=== PATIENT | female | born 1985 | race Caucasian/White ===

== ENCOUNTER 2024-07-08 02:24 | Emergency (ER) | payer SELFPAY ==
[2024-07-08] MEDS ORDERED: ACETAMINOPHEN 500 MG TAB ONE (03:16)
[2024-07-08] MEDS ORDERED: KETOROLAC 30 MG/ML INJ ONE (03:16)
[2024-07-08] MEDS ORDERED: methocarbamoL 500 MG TAB ONE (03:16)
--- NOTE | 2024-07-08 04:03 | ER ---
Nurse's Notes [facility] Name: Coral Howe Age: 38 yrs Sex: Female : 1985 Arrival Date: 07/08/2024 Time: 02:24 Bed 19 Private MD: Diagnosis: Sprain of ankle;Sprain of foot Presentation: 07/08 02:30 Chief complaint: Patient states: PAIN AND SWELLING ON THE LEFT FOOT AFTER FALLING AND ha1 BENDING MY FOOT. 02:30 Coronavirus screen: Vaccine status: Patient reports being unvaccinated. Ebola Screen: ha1 No symptoms or risks identified at this time. Initial Sepsis Screen: Does the patient meet any 2 criteria? No. Patient's initial sepsis screen is negative. Does the patient have a suspected source of infection? No. Patient's initial sepsis screen is negative. Risk Assessment: Do you want to hurt yourself or someone else? Patient reports no desire to harm self or others. Onset of symptoms was July 08, 2024. 02:30 Method Of Arrival: Wheelchair ha1 02:30 Acuity: JANICE 4 ha1 Historical: - Allergies: 02:59 No Known Allergies; ha1 - PMHx: 02:59 None; ha1 - Immunization history:: Adult Immunizations up to date. - Infectious Disease History:: Denies. - Social history:: Smoking status: Patient/guardian denies using tobacco, the patient reports quitting approximately 3 years ago. Screenin:30 [facility] ED Fall Risk Assessment (Adult) History of falling in the last 3 months, br2 including since admission Yes- single mechanical fall (1 pt) Confusion or Disorientation No (0 pts) Intoxicated or Sedated Yes (3 pts) Impaired Gait No (0 pts) Mobility Assist Device Used Yes (1 pt) Altered Elimination No (0 pt) Score/Fall Risk Level 3 or more points = High Risk Oriented to surroundings, Maintained a safe environment, Educated pt \T\ family on fall prevention, incl call for assistance when getting out of bed. 02:59 Abuse screen: Denies threats or abuse. Denies injuries from another. Nutritional ha1 screening: No deficits noted. Tuberculosis screening: No symptoms or risk factors identified. Assessment: 02:45 Reassessment: Patient and/or family updated on plan of care and expected duration. Pain br2 level reassessed. Patient is alert, oriented x 3, equal unlabored respirations, skin warm/dry/pink. Pain: Complains of pain in right leg Pain does not radiate. Pain currently is 10 out of 10 on a pain scale. Neuro: Lovett Agitation-Sedation Scale (RASS): 0 - Alert and Calm Level of Consciousness is awake, alert, obeys commands, confused, Oriented to person, place, time, situation. Cardiovascular: Capillary refill < 3 seconds. Respiratory: Airway is patent Respiratory effort is even, unlabored, Respiratory pattern is regular, symmetrical. GI: No signs and/or symptoms were reported involving the gastrointestinal system. : No signs and/or symptoms were reported regarding the genitourinary system. EENT: No signs and/or symptoms were reported regarding the EENT system. Derm: No signs and/or symptoms reported regarding the dermatologic system. Skin is intact, Skin is dry, Skin is normal, Skin temperature is warm. Musculoskeletal: Circulation, motion, and sensation intact. Capillary refill < 3 seconds, Range of motion: intact in all extremities, Swelling RIGHT ANKLE Reports pain in right leg. Injury Description: TRIPPED AND FELL... 04:15 Reassessment: Patient is alert, oriented x 3, equal unlabored respirations, skin br2 warm/dry/pink. Patient states feeling better. Patient states symptoms have improved. General: Appears comfortable, Behavior is calm, Smells of alcohol. Vital Signs: 02:30 BP 161 / 109; Pulse 87; Resp 17 S; Temp 97.9(T); Pulse Ox 98% on R/A; Weight 69.4 kg; ha1 Height 5 ft. 8 in. ; Pain 8/10; 03:30 BP 167 / 111; Pulse 95; Resp 18 S; Temp 98.2; Pulse Ox 96% on R/A; br2 02:30 Body Mass Index 23.26 (69.40 kg, 172.72 cm) ha1 02:30 Pain Scale: Adult ha1 ED Course: 02:27 Patient arrived in ED. [id number] 02:28 Kwame Monge MD is Attending Physician. ec2 02:30 Patient has correct armband on for positive identification. Bed in low position. Call br2 light in reach. Side rails up X 1. Provided Education on: PLAN OF CARE. 02:54 Bainbridge, Gemma, RN is Primary Nurse. br2 02:58 Ankle Right 3 View XRAY In Process Unspecified. EDMS 02:59 Triage completed. ha1 04:00 No provider procedures requiring assistance completed. Patient did not have IV access br2 during this emergency room visit. 04:32 To wrap to right ankle. br2 Administered Medications: 03:21 Drug: Methocarbamol PO 500 mg PO once Route: PO; br2 04:34 Follow up: Response: No adverse reaction; Pain is decreased br2 03:21 Drug: Acetaminophen PO 1000 mg PO once Route: PO; br2 04:13 Follow up: Response: No adverse reaction; Pain is decreased br2 04:02 CANCELLED (Physician Discretion): [id number] mg IVP once ec2 04:05 Drug: Ketorolac IM 15 mg IM once Route: IM; Site: right gluteus; br2 04:33 Follow up: Response: No adverse reaction; Pain is decreased br2 Medication: 03:30 VIS not applicable for this client. br2 Outcome: 04:02 Discharge ordered by . ec2 04:13 Discharged to home via wheelchair, br2 04:13 Condition: improved 04:13 Discharge instructions given to patient, Instructed on discharge instructions, follow up and referral plans. crutch walking, Demonstrated understanding of instructions, follow-up care, medications, Prescriptions given X 1, 04:37 Patient left the ED. br2 Signatures: Dispatcher [employer] EDAZ Zahra Chey [email or web address] Tena Cordero RN RN ha1 Kwame Monge MD MD ec2 Gemma Soto RN RN br2
--- NOTE | 2024-07-08 04:04 | EDPHYS ---
Physician Documentation [facility] Name: Coral Howe Age: 38 yrs Sex: Female : 1985 Arrival Date: 07/08/2024 Time: 02:24 Bed 19 Private MD: ED Physician Kwame Monge HPI: 07/08 02:41 This 38 yrs old Female presents to ER via Unassigned with complaints of Foot ec2 Injury. 02:41 Patient arrives today for evaluation after falling and injuring her right foot. ec2 Complaining of pain at the lateral malleolus, no other injuries.. Historical: - Allergies: 02:59 No Known Allergies; ha1 - PMHx: 02:59 None; ha1 - Immunization history:: Adult Immunizations up to date. - Infectious Disease History:: Denies. - Social history:: Smoking status: Patient/guardian denies using tobacco, the patient reports quitting approximately 3 years ago. ROS: 02:41 Constitutional: as per hpi ec2 Exam: 02:41 Constitutional: GEN: NAD Head: atraumatic Eyes: EOMI Ears: External ears are ec2 normal. CV: regular rate LUNGS: no respiratory distress ABD: non-distended SKIN: no evidence of rashes MSK: Swelling and TTP to the right lateral malleolus with overlying ecchymosis noted. Intact distal neurovascular status. Vital Signs: 02:30 BP 161 / 109; Pulse 87; Resp 17 S; Temp 97.9(T); Pulse Ox 98% on R/A; Weight 69.4 kg; ha1 Height 5 ft. 8 in. ; Pain 8/10; 03:30 BP 167 / 111; Pulse 95; Resp 18 S; Temp 98.2; Pulse Ox 96% on R/A; br2 02:30 Body Mass Index 23.26 (69.40 kg, 172.72 cm) ha1 02:30 Pain Scale: Adult ha1 MDM: 02:31 Patient medically screened. ec2 02:41 Data reviewed: vital signs. ED course: Patient arrives today for evaluation of a right ec2 ankle injury. Examination remarkable for ankle findings as above. Will obtain radiographs. Differential includes bony fracture, ankle sprain.. 04:02 ED course: Ankle x-ray independently reviewed and interpreted by me, shows no bony ec2 fracture. Will discharge home. Return precautions given.. 07/08 02:36 Order name: Ankle Right 3 View XRAY ec2 07/08 04:02 Order name: To Wrap; Complete Time: 04:40 ec2 Administered Medications: 03:21 Drug: Methocarbamol PO 500 mg PO once Route: PO; br2 04:34 Follow up: Response: No adverse reaction; Pain is decreased br2 03:21 Drug: Acetaminophen PO 1000 mg PO once Route: PO; br2 04:13 Follow up: Response: No adverse reaction; Pain is decreased br2 04:02 CANCELLED (Physician Discretion): [id number] mg IVP once ec2 04:05 Drug: Ketorolac IM 15 mg IM once Route: IM; Site: right gluteus; br2 04:33 Follow up: Response: No adverse reaction; Pain is decreased br2 Disposition Summary: 07/08/24 04:02 Discharge Ordered Notes: Location: Home ec2 Condition: Stable ec2 Diagnosis - Sprain of ankle ec2 - Sprain of foot ec2 Followup: ec2 - With: Private Physician - When: - Reason: Re-evaluation by your physician Discharge Instructions: - Discharge Summary Sheet ec2 - Ankle Sprain, [id number] ec2 Forms: - Medication Reconciliation Form ec2 - Antibiotic Education ec2 - Prescription Opioid Use ec2 - Patient Portal Instructions ec2 - Leadership Thank You Letter ec2 Prescriptions: - methocarbamol 500 mg Oral tablet - take 1 tablet ORAL route 4 times per day; 15 tablet; Refills: 0, Product ec2 Selection Permitted Signatures: Dispatcher [employer] Tena Grimm RN RN ha1 Kwame Monge MD MD ec2 Gemma Soto RN RN br2 Corrections: (The following items were deleted from the chart) 04:02 02:36 Ketorolac IVP 15 mg IVP once ordered. ec2 ec2
--- NOTE | 2024-07-08 04:32 | RAD REPORT ---
EXAM: XR ANKLE 3 OR MORE VIEWS RIGHT CLINICAL DATA: 38 years Female injury TECHNICAL DATA: Three x-ray views of the right ankle were performed on 07/08/2024 at 2:42 AM. COMPARISONS: None FINDINGS: There is no evidence of fracture or dislocation. There is no significant arthritis or degenerative ch arin. No focal lytic or sclerotic bone lesions are seen. Bone mineralization is normal. There may be mild soft tissue swelling along the lateral aspect of the talus. IMPRESSION: No evidence of acute osseous injury involving the right ankle. There may be mild soft tissue swelling along the lateral aspect of the talus. Electronically signed by: Rebekah Stewart DO 07/08/2024 04:19 AM CDT Due to temporary technical issues with the [employer] reporting system, reports are being dorita d by the in-house radiologist without review as a courtesy to ensure prompt reporting the interpreting radiologist is fully responsible for the content of the report. Transcribed Date/Time: 07/08/2024 4:32 AM
[2024-07-08 04:58] VITALS: BP 167/111; TEMP 98.2; O2SAT 96
== END 2024-07-08 04:37 | disposition home or self-care (01) ==
LOC: ER 02:24
DX: S93.601A Unspecified sprain of right foot, initial encounter (principal); S93.401A Sprain of unspecified ligament of right ankle, initial encounter
CPT/HCPCS: 96372; 99284